=== PATIENT | female | born 1935 | race Caucasian/White ===

== ENCOUNTER 2016-10-25 12:27 | Emergency (ER) | payer MEDICARE, OTHER | END 2016-10-25 16:59 | disposition short-term general hospital (02) | LOC: ER 12:27 | DX: E11.621 Type 2 diabetes mellitus with foot ulcer (principal); L97.529 Non-pressure chronic ulcer of other part of left foot with unspecified severity; E11.51 Type 2 diabetes mellitus with diabetic peripheral angiopathy without gangrene; D72.829 Elevated white blood cell count, unspecified; J18.9 Pneumonia, unspecified organism; I11.0 Hypertensive heart disease with heart failure; I50.9 Heart failure, unspecified; I25.2 Old myocardial infarction; E78.5 Hyperlipidemia, unspecified; L03.116 Cellulitis of left lower limb; Z88.8 Allergy status to other drugs, medicaments and biological substances | CPT/HCPCS: 36415; 51701; 96361; 96365; 96367; 96375; J3370 ==